=== PATIENT | male | born 1985 ===

== ENCOUNTER 2021-03-17 21:48 | Emergency (ER) | payer SELFPAY ==
[~2021-03-17] VITALS: Ht 180.3 cm; Wt 102.1 kg
[2021-03-17 22:07] VITALS: BP 150/78
[2021-03-17] MEDS ORDERED: DULCOLAX5 MG PO (22:11)
[2021-03-17] MEDS ORDERED: ANUSOL-HC25 MG RC (22:11)
== END 2021-03-17 22:14 | disposition home or self-care (01) ==
LOC: FSED 22:07
DX: K62.5 Hemorrhage of anus and rectum (principal); K64.9 Unspecified hemorrhoids
CPT/HCPCS: 99282